=== PATIENT | female | born 1975 | race Caucasian/White ===

== ENCOUNTER 2017-07-06 09:59 | Day surgery (SDC) | payer OTHER ==
[2017-07-04 09:02] VITALS: BMI 25.0
[2017-07-06] MEDS ORDERED: Bupivacaine-Epi 0.25%-1:200,000 PF Inj ONE (10:54)
[2017-07-06] MEDS ORDERED: HYDROmorphone 0.5 mg/0.5 ml ISec IVP PRN ×2 (11:00→15:01)
[2017-07-06] MEDS ORDERED: Lactated Ringer's 1,000 ML IV ONE ×2 (11:14)
[2017-07-06] MEDS: ceFAZolin IV 2 gm in Dextrose 1 GM/50 ML BAG IVPB ONE ×2 (11:14→11:45)
[2017-07-06] MEDS ORDERED: Propofol 10 mg/ml Inj (20 ML) ONE (11:35)
[2017-07-06] MEDS ORDERED: Midazolam 2 MG/2 ML VIAL ONE (11:36)
[2017-07-06] MEDS ORDERED: Rocuronium 10 mg/ml (5 ml) ONE (11:59)
--- NOTE | 2017-07-06 13:43 | PCM.SURG1 ---
Surgeon's Initial Post Op Note - Surgeon's Notes Surgeon: prashanht suh md Baseball Winder: jl MOSES, Jay Jay SHETH Type of Anesthesia: General Endo, Local Pre-Operative Diagnosis: Chronic pelvic pain. Endometriosis. Prolapse uterus. Abnormal uterine bleeding. Fibroids Operative Findings: bulky enlarged adherent prolpased uterus. extensive adhesions from prior surgeries. right complex ovarian cyst. left paratubal cyst. normal ureters and bladder anatomy. Extensive adhesions throughtout the abdominal cavity Post-Operative Diagnosis: Chronic pelvic pain. Endometriosis. Prolapse uterus. Abnormal uterine bleeding. extensive adhesions bowel and peritoneal adhesions. right ovarian cyst. left paratubal cyst. fibroiods Operation Performed: Total robotic hysterectomy bilateral salpingectomy >250g. Colpopexy Uterosacroligament suspenssion. Enterolysis. Lysis of adhesions. Right ovarian cystectomy. Excision of endoemtriosis. Cystoscopy Specimen/Specimens Removed: uterus, cervix and tubes. right ovarian cyst Estimated Blood Loss: EBL {In ML}: 10 Blood Products Given: N/A Drains Used: No Drains Post-Op Condition: Good Date of Surgery/Procedure: 07/06/17 Time of Surgery/Procedure: 13:46
[2017-07-06] MEDS ORDERED: Oxycodone/Acetaminophen 5/325 mg Tab PO PRN (13:47)
--- NOTE | 2017-07-06 13:50 | PCM.OP ---
Operative Report - Operative Report Date of Surgery/Procedure: 07/06/17 Time of Surgery/Procedure: 13:47 Surgeon: prashanth Murphy MD Locks Tender: Alicja SHETH Anesthesia/Sedation: General with ET tube Pre-Operative Diagnosis: Chronic pelvic pain. Abnormal uterine bleeding. Fibroids. Prolapse uterus. Urinary incontinence Post-Operative Diagnosis: Chronic pelvic pain. Abnormal uterine bleeding. Fibroids. Prolapse uterus. Urinary incontinence. right ovarian cyst. Endometriosis. Extensive adhesions bowel and peritoneal Indication for Surgery: Worsening pelvic pain and prolpase uterus. Worsening urinary incontinence. Failed conservative managment Operative Findings: Bulky adherent uterus. extensive adhesions to abdominal wall and to bladder involving bowel looops and omentum. right complex ovarian cyst approx 3 cm. left paratubal cyst. normal ureters and bladder anatomy as per cystoscopy. Ureters efluxing urine freely Procedure/Operation Description: Total robotic hysterectomy bilateral salpingectomy. Colpopexy Uterosacroligament suspenssion. Enterolysis. Lysis of adhesions. Right ovarian cystectomy. Excision of endoemtriosis. Cystoscopy. Detailed Operative Report. This is a 42 years old female with chronic pelvic pain, prolpase uterus, abnormal uterine bleeding, urinary incontinence and endometriosis. The patient completed an extensive preoperative workup, which included an ultrasound, as well as a pap smear and an endometrial biopsy, chemistry and hematology studies. The patient reported these symptoms and problems as debilitating, and adversely affecting her quality of life. Following a period of failed conservative management, and patient decision was made to proceed with a more invasive approach to address the above noted problems. A decision was finally made to proceed with a total robotic assisted hysterectomy, bilateral salpingectomy, and vaginal vault suspension. A detailed description of this robotic procedure was given to the patient, all risks and benefits of the surgical modality was reviewed, printed material was also given to the patient regarding robotic surgery. The patient fully understood all the risks and benefits and elected to proceed with this proposed procedure. The patient is made it clear that she has completed childbearing and has no intentions of any future pregnancies. Patient understands the final condition following hysterectomy and inability to conceive any future pregnancies. After proper consent was obtained from the patient was taken to the operating room, proper patient identification was completed. She was placed in dorsal lithotomy position; general anesthesia was induced without difficulty. Her legs were placed in adjustable Jesus stirrups. Careful attention was placed not to over-flex or over-rotate the lower extremities at the hip or the knee joints. She was prepped and draped appropriately for robotic assisted hysterectomy. Zaidi catheter was inserted under sterile conditions. A weighted speculum was placed in the vagina, anterior lip of cervix was grasped with a tenaculum, and a V-care uterine manipulator was inserted through the cervix and secured. The weighted speculum and tenaculum were removed from the patient's vagina and attention was turned to the patient's abdomen. Local anesthetic solutions of 0.25% Marcaine with epinephrine were utilized to infiltrate the skin prior to all abdominal skin incisions. A total of 15 mL of 0.25% Marcaine was utilized throughout the procedure. While tenting the abdominal wall, a Veres needle was inserted through the umbilicus and a pneumoperitoneum was obtained. Approximately 1 cm above the umbilicus in the midline, a 0.8 cm incision was made with a scalpel and a trocar and sleeve were introduced. A robotic camera was inserted and an initial survey of the patient's abdomen revealed an enlarged bulky uterus, boggy in appearance. right ovary with complex 3 cm cyst, left ovary appeared normal with normal appearing fallopian tubes with a paratubal cyst on left tube. Extensive adhesions involving bowel loops and omentum to antertior abdominal wall and to bladder. The patient was placed in Trendelenburg position ready for a da Heather robotic system to be docked. 3 robotic ports were utilized for this procedure. The camera port was placed in the periumbilical fold approximately 8 mm in size. The first robotic port was placed on the patient's right side approximately 3 cm superior to the right superior iliac crest. The second robotic port was placed 3 cm superior to the left superior iliac crest. The third robotic port was placed approx. 8 cm right lateral the camera port. All ports were approx. aligned along the same horizontal line on the abdomen in an arch like fashion. An manufacturing assistant port was placed approximately 5 cm left lateral to midline along the suprapubic region. For the manufacturing assistant port we utilized the Versa step trocar system. All trocars were inserted under direct visualization. The placement of the trocars was all accomplished under careful and meticulous placement under direct visualization. Following the placement of all trocars, the da Heather robotic system was docked in a parallel method without difficulty. The following instruments were utilized for this procedure: the bipolar cautery device, a monopolar nickolas and finally a ProGrasp. Meticulous and careful lysis of adhesions as well as enterolysis was accomplished utilizing the monopolar nickolas and bipolar device. Prior to the start of the hysterectomy, lesions involving the pelvic sidewalls in close proximity to both ureters, exploration of the ureters and their courses was necessary. Following meticulous and careful dissection into the pelvic sidewall, both ureters were explored and visualized, peristalsis bilaterally. Extensive lysis of adhesions and enterolysis was completed prior to the hysterectomy to restore normal anatomy within the pelvis. On the patient 's right side, the utero-ovarian and the round ligaments were identified cauterized and transected, the broad ligament was divided all the way down to the utero cervical junction bladder flap was then created by transecting the visceroperitoneum over the bladder reflection. In a similar fashion, the left round ligament, utero-ovarian ligament and broad ligament were cauterized sealed and transected, taken down to the level of the cervical uterine junction. Uterine vessels on both sides were sealed and transected. The Uterosacral ligaments were sealed and transected. The monopolar nickolas and PK were utilized to complete the colpotomy incision around the care vaginal ring. Excellent hemostasis was noted. The uterus, cervix, ovaries and fallopian tubes were delivered transvaginal through the colpotomy incision and sent to pathology for permanent analysis. The colpotomy incision was closed with 2-0 v LOC in a continuous fashion with excellent hemostasis. The vaginal vault suspension was achieved by suspending the vaginal cuff to the base of the uterosacral ligaments bilaterally. For uterosacral ligament suspension portion of the procedure, the ureters were once again identified to avoid possible compromise or kinking while suspending the vaginal vault. A 2-0 permanent suture material ([place]Ariel) was utilized to suspend the uterosacral ligaments from the base to the vaginal vault cuff incision including both anterior and posterior aspect of the colpotomy incision. Utilizing a 3-0 Monocryl suture, the peritoneum over the colpotomy incision and uterosacral ligaments was re- approximated in a continuous fashion. The abdomen was throughout irrigated and cleared of all clots and debris. FloSeal as well as Interceed was applied to the incision sites. Excellent hemostasis was again noted. All robotic and laparoscopic instruments removed under direct visualization. The robotic arms were undocked, and a da Heather robotic system was wheeled away from the patient' s bedside. Both manufacturing assistant and camera ports were closed at the fascial layer utilizing a 2-0 Vicryl suture material in interrupted fashion. Pneumoperitoneum was reduced and all skin incisions were closed utilizing 4-0 Monocryl in a subcutaneous fashion. Dermabond was applied to all incisions. Due to the complexity of this hysterectomy and colpopexy, a diagnostic cystoscopy was completed. The Zaidi catheter was removed; the bladder was distended with approximately 350 cc of normal saline. A 30 cystoscope was introduced and a survey of the bladder anatomy was completed. The base, and the dome of the bladder appeared normal, both ureteral orifices appeared normal and were efluxing urine freely. The urethra appeared normal. A Zaidi catheter was reinserted. Vaginal packing was inserted to be removed the next morning. Patient emerged from general anesthesia without difficulty, and was taken to recovery room in stable condition. Prior to incision the patient received antibiotics, prior to closure sponge lap and needle counts were correct x2. Estimated Blood Loss: 10 ml Blood Replaced: none Sponge/Instrument Count: correct times two Drains: none Complications: none Specimen: uterus cervix tubes. right ovarian cyst Discharge & Condition: discharge home when conditions met
[2017-07-06] MEDS ORDERED: ceFAZolin IV 1 gm in Dextrose 1 GM/50 ML BAG IVPB SCH ×2 (14:00→18:00)
[2017-07-06] MEDS ORDERED: HYDROmorphone 0.5 mg/0.5 ml ISec ONE (14:03)
[2017-07-06] MEDS: HYDROmorphone 0.5 mg/0.5 ml ISec IVP PRN ×4 (14:05→15:50)
[2017-07-06 16:36] VITALS: O2SAT 99
[2017-07-06] MEDS: Sodium Chloride 0.9% 1,000 ML IV SCH (17:33)
[2017-07-06] MEDS: ceFAZolin IV 1 gm in Dextrose 1 GM/50 ML BAG IVPB SCH (20:11)
[2017-07-06] MEDS ORDERED: Morphine 4 MG/ML VIAL ONE (22:07)
[2017-07-07] MEDS: ceFAZolin IV 1 gm in Dextrose 1 GM/50 ML BAG IVPB SCH ×2 (03:35→11:14)
[2017-07-07] MEDS ORDERED: Morphine 4 MG/ML VIAL ONE (06:14)
[2017-07-07] MEDS: Sodium Chloride 0.9% 1,000 ML IV SCH (06:19)
[2017-07-07 08:21] VITALS: BP 119/78; PULSE 70; RESP 18; TEMP 97
--- NOTE | 2017-07-07 10:30 | CP.PCM.PN ---
Subjective - Date & Time of Evaluation Date of Evaluation: 07/07/17 Time of Evaluation: 10:28 - Subjective Subjective: Patient states she had a lot of pain last night, but a little better today. She still complains of nausea this am, but improved. +passing gas, +void but little Objective - Vital Signs/Intake and Output Vital Signs (last 24 hours): Temp Pulse Resp BP Pulse Ox 97 F L 70 18 119/78 99 07/07/17 08:00 07/07/17 08:00 07/07/17 08:00 07/07/17 08:00 07/07/17 08:00 Intake and Output: 07/07/17 07/07/17 06:59 18:59 Intake Total 960 Output Total 1000 Balance -40 - Medications Medications: Current Medications Docusate Sodium (Colace) 100 mg PO BID [facility] Last Admin: 07/07/17 09:57 Dose: 100 mg Sodium Chloride (Sodium Chloride 0.9%) 1,000 mls @ 80 mls/hr IV .[id number] [facility] Last Admin: 07/07/17 06:19 Dose: 80 mls/hr Cefazolin Sodium/Dextrose (Ancef Iv 1 Gm Duplex) 1 gm in 50 mls @ 100 mls/hr IVPB Q8H [facility] Stop: 07/07/17 12:29 Last Admin: 07/07/17 03:35 Dose: 100 mls/hr Morphine Sulfate (Morphine) 4 mg IVP Q4 PRN PRN Reason: Pain, severe (8-10) Last Admin: 07/07/17 06:16 Dose: 4 mg Ondansetron HCl (Zofran Inj) 4 mg IVP Q6H PRN PRN Reason: Nausea/Vomiting Last Admin: 07/07/17 07:42 Dose: 4 mg Oxycodone/Acetaminophen (Percocet 5/325 Mg Tab) 2 tab PO Q4 PRN PRN Reason: Pain, moderate (4-7) Stop: 07/09/17 13:48 - Constitutional Appears: Well, No Acute Distress - Respiratory Exam Respiratory Exam: NORMAL BREATHING PATTERN - GI/Abdominal Exam GI & Abdominal Exam: Soft, Tenderness, Hypoactive Bowel Sounds Additional comments: slightly distended incisions intact, dry, no erythema, no vag bleeding calves soft NT neg homans Assessment and Plan (1) Chronic pelvic pain in female Assessment & Plan: POD#1 s/p total robotic hyserectomy B salpingectomy, colppexy, US susp, enterolysis, lysis of adhesions, right ovarian csytectomy, excision of end, cystoscopy -d/c home today -encourage PO intake -rx percocet Dr. Rivera, stool softeners -call for follow up appointment -d/w Dr. Rivera, agrees with above Status: Acute (2) Abnormal uterine bleeding (AUB) Status: Acute (3) Fibroid Status: Acute (4) Prolapse of uterus Status: Acute (5) Urinary incontinence Status: Acute (6) Right ovarian cyst Status: Acute (7) Endometriosis Status: Acute (8) Peritoneal adhesions Status: Acute
[2017-07-07 11:51] LABS: HEMATOCRIT 36.4 % (34.0-47.0); MEAN CELL VOLUME 97.8 fL (81.0-99.0); MEAN CORPUSCULAR HEMOGLOBIN 33.2 pg (27.0-31.0); MEAN CORPUSCULAR HGB CONC 33.9 g/dL (33.0-37.0); MEAN PLATELET VOLUME 7.6 fL (7.2-11.7)
[2017-07-07 11:56] LABS: WHITE BLOOD COUNT 10.3 K/uL (4.8-10.8)
[2017-07-07 12:12] LABS: CHLORIDE 99 mmol/L (98-107)
[2017-07-07 12:13] LABS: POTASSIUM 3.9 mmol/L (3.6-5.2); SODIUM 132 mmol/L (132-148)
[2017-07-07 12:15] LABS: GFR AFRICAN-AMERICAN > 60
[2017-07-07 12:16] LABS: BLOOD UREA NITROGEN 11 mg/dL (7-17); CALCIUM 8.1 mg/dl (8.6-10.4); CARBON DIOXIDE 20 mmol/L (22-30); GLUCOSE,RANDOM 100 mg/dL (65-105)
[2017-07-07] MEDS ORDERED: Influenza Vaccine 60 mcg/0.5 mL SYR (4YR UP) IM ONE (14:43)
== END 2017-07-07 15:30 | disposition home or self-care (01) ==
LOC: C.SDS 09:59 → C.4M 13:47 → C.SDS 07-07 15:30
PROVIDERS: ATTEND Obstetrics & Gynecology
DX: N80.0 Endometriosis of uterus (principal); N88.8 Other specified noninflammatory disorders of cervix uteri; N83.11 Corpus luteum cyst of right ovary; R32 Unspecified urinary incontinence; K66.0 Peritoneal adhesions (postprocedural) (postinfection)
CPT/HCPCS: 36415; 58571; 58662; 80048; 85027; 86850; 86900; 88305; 88309; 97116; 97161; G8978; G8979; G8980; J0690; J1100; J1170; J1885; J2001; J2250; J2270; J2405; J2704; J3010; J7040; J7120; S2900